=== PATIENT | female | born 1970 | race African-American/Black ===

== ENCOUNTER 2020-02-20 15:41 | Outpatient (CLI) | payer BC ==
--- NOTE | 2020-02-20 16:23 | RAD ---
LEFT FOOT THREE VIEWS: 02/20/20 HISTORY: Left foot pain. Some mild arthritic change of the great toe. Calcaneal spur at the Achilles tendon insertion is noted . Some minimal arthritic change of the ankle joints are seen. IMPRESSION: Very mild arthritic changes of the ankle and foot. POS: [facility]
== END 2020-02-20 15:42 | disposition home or self-care (01) ==
LOC: BICRAD 15:41
PROVIDERS: ATTEND Family Medicine
DX: M79.672 Pain in left foot (principal); M19.072 Primary osteoarthritis, left ankle and foot

== ENCOUNTER 2021-09-30 07:19 | Outpatient (CLI) | payer BC | END 2021-09-30 07:20 | disposition home or self-care (01) | LOC: BICULT 07:19 | PROVIDERS: ATTEND Nurse Practitioner Family | DX: E28.0 Estrogen excess (principal); Z12.89 Encounter for screening for malignant neoplasm of other sites; N83.201 Unspecified ovarian cyst, right side; Z90.710 Acquired absence of both cervix and uterus; Z90.79 Acquired absence of other genital organ(s) | CPT/HCPCS: 76856; 93976 ==

== ENCOUNTER 2025-09-15 14:26 | Outpatient (CLI) | payer BC ==
[~2025-09-15 14:26] MED LIST: Iopamidol 370 76% 100 ML VIAL ONE
== END 2025-09-15 14:27 | disposition home or self-care (01) ==
LOC: CT 14:26
PROVIDERS: ATTEND Physician Assistant Medical
DX: R74.8 Abnormal levels of other serum enzymes (principal); E66.01 Morbid (severe) obesity due to excess calories; Z90.49 Acquired absence of other specified parts of digestive tract
CPT/HCPCS: 36000; 74170; 76937; Q9967